=== PATIENT | male | born 2000 | race Caucasian/White ===

== ENCOUNTER 2020-09-24 21:39 | Emergency (ER) | payer BC, OTHER ==
[~2020-09-24] VITALS: Ht 182.9 cm; Wt 70.8 kg
[2020-09-25] MEDS ORDERED: HYDR1TAB94 PO (01:51)
== END 2020-09-25 02:15 | disposition home or self-care (01) ==
LOC: ER 21:39
DX: S52.302A Unspecified fracture of shaft of left radius, initial encounter for closed fracture (principal); Z91.048 Other nonmedicinal substance allergy status; V86.56XA Driver of dirt bike or motor/cross bike injured in nontraffic accident, initial encounter
CPT/HCPCS: 25505; 73090; 96374-59; 96376; 99283-25; A9270; J3010

== ENCOUNTER 2020-10-04 10:47 | Day surgery (SDC) | payer BC, OTHER ==
[~2020-10-04] VITALS: Ht 182.9 cm; Wt 71.8 kg
[~2020-10-04 10:47] MED LIST: HYDR1TAB94 PO
--- NOTE | 2020-10-04 12:05 | NUR ---
10/04/20 1205 Jose Milian HEALING ABRASION NOTED ON ELBOW AND FOREARM.
--- NOTE | 2020-10-04 13:15 | NUR ---
10/04/20 1315 Perla Navas PT IN CHAIR OP LIMB ELEVATED ON PILLOW, JEREMIAH APPLIED. PT CURRENTLY RATES PAIN 10/13. PT TOLERATING PO FLUIDS WELL, PT DENIES NAUSEA. CALL LIGHT IN REACH. VSS.
== END 2020-10-04 13:46 | disposition home or self-care (01) ==
LOC: ORSCSDS 10:47
PROVIDERS: Orthopaedic Surgery
PROC: 0PSJ04Z Reposition Left Radius with Internal Fixation Device, Open Approach (ICD-10-PCS; principal; 2020-10-04 12:15)
DX: S52.302A Unspecified fracture of shaft of left radius, initial encounter for closed fracture (principal); F17.210 Nicotine dependence, cigarettes, uncomplicated
CPT/HCPCS: C1713; J0690; J1100; J1885; J2250; J2405; J2704; J2795; J3010; J7120

== ENCOUNTER 2024-05-03 20:00 | Emergency (ER) | payer OTHER ==
[~2024-05-03] VITALS: Ht 182.9 cm; Wt 74.8 kg
[2024-05-03 20:22] LABS: BASOPHILS ABSOLUTE AUTO 0.06 K/mm3 (0.00-0.23); BASOPHILS PERCENT AUTO 0 % (0-2); EOSINOPHILS ABSOLUTE AUTO 0.12 K/mm3 (0.00-0.68); EOSINOPHILS PERCENT AUTO 1 % (0-6); Hemoglobin 14.6 g/dL (13.5-17.5); IMMATURE GRAN ABSOLUTE AUTO 0.11 K/mm3 (0.00-0.10); IMMATURE GRAN PERCENT AUTO 1 % (0-1); LYMPHOCYTES ABSOLUTE AUTO 3.96 K/mm3 (0.84-5.20); LYMPHOCYTES PERCENT AUTO 24 % (21-46); MONOCYTES ABSOLUTE AUTO 0.98 K/mm3 (0.16-1.47); MONOCYTES PERCENT AUTO 6 % (4-13); Mean Corpuscular HGB Conc 34.8 g/dL (31.5-36.5); Mean Corpuscular Volume 95 fL (80-100); NEUTROPHILS ABSOLUTE AUTO 11.08 K/mm3 (1.96-9.15); NEUTROPHILS PERCENT AUTO 68 % (41-73); Platelet Count 373 K/mm3 (150-400); RDW Coefficient Variation 12.6 % (11.7-14.2); RDW Standard Deviation 43.9 fL (35.1-46.3); Red Blood Cell Count 4.42 M/mm3 (4.30-5.90); White Blood Cell Count 16.31 K/mm3 (4.00-11.30)
[2024-05-03 20:35] LABS: Albumin, Blood 4.2 g/dL (3.4-5.0); Albumin/Globulin Ratio 1.4 (0.8-1.8); Bilirubin, Total 0.6 mg/dL (0.1-1.0); Bun/Creatinine Ratio 14.7 (12.0-20.0); Calcium, Blood 8.2 mg/dL (8.5-10.1); Creatinine, Blood 0.82 mg/dL (0.60-1.20); Globulin, Blood 3.1 g/dL (2.2-4.0); Potassium, Blood 3.8 mmol/L (3.5-5.5); Total Protein, Blood 7.3 g/dL (6.4-8.2)
[2024-05-03 20:36] LABS: International Normalized Ratio 0.91; Prothrombin Time Results 9.8 Sec (9.7-11.5)
[2024-05-03] MEDS ORDERED: FentaNYL Citrate 50 MCG/ML 2 ML Injection IV ONE (20:50)
[2024-05-03] MEDS ORDERED: HYDROmorphone HCl/Pf 1MG SYR IV ONE (22:00)
[2024-05-03] MEDS ORDERED: Ondansetron HCl 2 MG / ML 2ML Vial IV ONE (22:00)
[2024-05-03] MEDS ORDERED: Propofol 10mg/ml 20 ml Vial (Procedural) IV SCH ×2 (22:15→23:55)
[2024-05-03] MEDS ORDERED: NS 1,000 ML IV SCH (22:30)
[2024-05-03] MEDS ORDERED: Diphth,Pertuss(Acell),Tet Vac 0.5 ML VIAL IM ONE (22:50)
[2024-05-03] MEDS ORDERED: propofoL 20 ML IV ONE (23:14)
[2024-05-04] MEDS ORDERED: Ondansetron HCl 2 MG / ML 2ML Vial IV ONE (00:45)
[2024-05-04] MEDS ORDERED: Propofol 10mg/ml 20 ml Vial (Procedural) IV SCH (01:05)
[2024-05-04] MEDS ORDERED: NS 1,000 ML IV ONE (01:28)
[2024-05-04 02:00] VITALS: BP 107/58
== END 2024-05-04 03:40 | disposition short-term general hospital (02) ==
LOC: ER 20:00
PROVIDERS: Student in an Organized Health Care Education/Training Program
DX: S42.402A Unspecified fracture of lower end of left humerus, initial encounter for closed fracture (principal); S01.111A Laceration without foreign body of right eyelid and periocular area, initial encounter; S01.81XA Laceration without foreign body of other part of head, initial encounter; S01.412A Laceration without foreign body of left cheek and temporomandibular area, initial encounter; S01.511A Laceration without foreign body of lip, initial encounter; F10.129 Alcohol abuse with intoxication, unspecified; V89.2XXA Person injured in unspecified motor-vehicle accident, traffic, initial encounter; Z88.8 Allergy status to other drugs, medicaments and biological substances
CPT/HCPCS: 12011; 23655; 24600; 70450; 70498; 71045; 73070; 73080; 73200; 76000; 80053; 80320; 85025; 85610; 85730; 96374-59; 96375-59; 96376-59; 99152; 99153; 99285-25; J1171; J2405; J2704; J3010; J7030; Q9967